=== PATIENT | female | born 1950 | race African-American/Black ===

== ENCOUNTER 2017-07-14 04:28 | Emergency (ER) | payer OTHER, MEDICARE ==
[~2017-07-14] VITALS: Ht 170.2 cm; Wt 73.9 kg
[~2017-07-14 04:28] MED LIST: AMLODIPINE10 MG PO; ASPIR 8181 MG PO; CHLORTHALIDONE50 MG PO; CLONIDINE HCL0.3 MG PO; FLOVENT0.11 MG/Ac INH; LOSARTAN POTAS100 MG PO; METOPROLOL SUC100 MG PO; PROTONIX 40MG T40 MG PO; TRAMADOL50 MG PO; WARFARIN SODIUM10 MG PO
--- NOTE | 2017-07-14 04:32 | ED CARDIAC/CP/PALPITATIONS ---
History of Present Illness General Chief Complaint: Chest Pain Stated Complaint: CHEST PAIN Source: patient Exam Limitations: no limitations Vital Signs & Intake/Output Vital Signs & Intake/Output Vital Signs Date Time Temp Pulse Resp B/P B/P Pulse O2 O2 Flow FiO2 Mean Ox Delivery Rate 07/14 0835 98.0 68 20 120/58 98 Room Air 07/14 0626 97.3 64 20 142/68 100 Room Air 07/14 0445 98 Room Air 07/14 0430 97.0 62 18 100/55 97 Room Air Allergies Coded Allergies: iodine (UNKNOWN 09/30/15) shellfish derived (UNKNOWN 09/30/15) Reconcile Medications Amlodipine Besylate (Amlodipine) 10 MG TABLET 1 TAB PO DAILY BP (Reported) Aspirin (Ecotrin) 81 MG TABLET.DR 1 TAB PO DAILY HEART/BLOOD (Reported) Chlorthalidone 50 MG TAB 1 TAB PO BID BP (Reported) Clonidine Hydrochloride (Clonidine HCl) 0.3 MG TAB 1 TAB PO DAILY BP ( Reported) Fluticasone Propionate (Flovent) 0.11 MG/Actuation CHRISSY 2 PUFF INH PRN DYSPNEA (Reported) Losartan Potassium 100 MG TABLET 1 TAB PO DAILY BP (Reported) Metoprolol Succinate 100 MG TAB.ER.24H 1 TAB PO DAILY HEART (Reported) Pantoprazole Sodium (Protonix) 40 MG TABLET.DR 1 TAB PO DAILY GASTRITIS TRAMADOL HCL (Tramadol) 50 MG TABLET 1 TAB PO Q6P PRN PAIN Warfarin Sodium 10 MG TABLET 1 TAB PO AD BLOOD THINNER (Reported) Triage Nurses Notes Reviewed? yes Onset: Abrupt Duration: hour(s): Timing: single episode today Location: central, left shoulder Radiation: left shoulder Activities at Onset: none Prior Chest Pain/Card Workup: chf Aspirin Today: 325 mg x 1, provided by EMS Associated Symptoms: shortness of breath HPI: 67 yo woman h/o chf, presents with sudden onset left sided shoulder and chest pain x 30 minutes. Was an 8/10 at home, now 6-01/11. She notes that the pain is reproducible, but that it is "deep" pain. "When I get like this, it's my chf." (Nevin GONZALEZ,Aaron Alba) Past History Travel History Traveled to [place] past 21 day No Medical History Any Pertinent Medical History? see below for history Cardiovascular: CHF, hypertension, hyperlipidemia, "HEART PROBLEMS" Musculoskeletal: fracture Endocrine: NONE Blood Disorders: DVT Surgical History Surgical History: non-contributory Psychosocial History Who do you live with Daughter Services at Home None What is your primary language Luxembourgish Family History Hx Contributory? No (Nevin GONZALEZ,Aaron lAba) Review of Systems Review of Systems Constitutional: Reports: no symptoms. EENTM: Reports: no symptoms. Respiratory: Reports: no symptoms. Cardiovascular: Reports: no symptoms. GI: Reports: no symptoms. Genitourinary: Reports: no symptoms. Musculoskeletal: Reports: no symptoms. Skin: Reports: no symptoms. Neurological/Psychological: Reports: no symptoms. Hematologic/Endocrine: Reports: no symptoms. Immunologic/Allergic: Reports: no symptoms. All Other Systems: Reviewed and Negative (Aaron Rooney MD) Physical Exam Physical Exam General Appearance: well developed/nourished, mild distress Head: atraumatic, normal appearance Eyes: Bilateral: normal appearance. Ears, Nose, Throat: normal pharynx, normal ENT inspection Neck: normal inspection, supple, full range of motion Respiratory: normal breath sounds, no respiratory distress, left sided diffuse shoulder tenderness to palpation Cardiovascular: regular rate/rhythm Gastrointestinal: normal bowel sounds, soft, non-tender, no organomegaly Back: normal inspection, normal range of motion Extremities: normal inspection, normal capillary refill, normal range of motion, no edema Neurologic/Psych: no motor/sensory deficits, awake, alert, oriented x 3 Skin: intact, normal color, warm/dry Core Measures ACS in differential dx? Yes CVA/TIA Diagnosis No Sepsis Present: No Sepsis Focused Exam Completed? No (Aaron Rooney MD) Progress Differential Diagnosis: mi vs unstable angina vs other. Plan of Care: Orders Procedure Date/time Status TROPONIN LEVEL 07/14 0820 Active EKG 07/14 0820 Active TROPONIN LEVEL 07/14 431 Complete PARTIAL THROMBOPLASTIN TIME 07/14 431 Complete PROTHROMBIN TIME 07/14 431 Complete D-DIMER 07/14 431 Complete COMPREHENSIVE METABOLIC PANEL 07/14 431 Complete CBC WITHOUT DIFFERENTIAL 07/14 431 Complete B-TYPE NATRIURETIC PEP (BNP) 07/14 431 Complete EKG 07/14 431 Active Laboratory Tests 07/14/17 0830: Troponin I Pending 07/14/17 0520: Anion Gap 11, Estimated GFR > 60, BUN/Creatinine Ratio 21.4, Glucose 114 H, Calcium 9.6, Total Bilirubin 0.6, AST 32, ALT 33, Alkaline Phosphatase 52, Troponin I < 0.01, Aah-G-Fanelflxezz Pept 71.9, Total Protein 6.8, Albumin 3.9, Globulin 2.9, Albumin/Globulin Ratio 1.3, PT 26.2 H, INR 2.52 H, APTT 39 H, D -Dimer High Sensitivty < 200, CBC w Diff NO MAN DIFF REQ, RBC 4.35, MCV 88.1, MCH 28.9, RDW 14.1, MPV 8.3, Gran % 67.5, Lymphocytes % 22.3, Monocytes % 8.3, Eosinophils % 1.6, Basophils % 0.3, Absolute Granulocytes 8.5 H, Absolute Lymphocytes 2.8, Absolute Monocytes 1.1 H, Absolute Eosinophils 0.2, Absolute Basophils 0, PUBS MCHC 32.8 L Diagnostic Imaging: Viewed by Me: Radiology Read. Discussed w/RAD: Radiology Read. Radiology Impression: left shoulder... no fx. CXR Impression: no acute abnormality, no infiltrates, normal size heart, normal mediastinum, PATIENT: HAYDE WAN PRESENT AGE: 67 PATIENT ACCOUNT NO: [id number] : 49 LOCATION: [facility] ORDERING PHYSICIAN: Aaron Rooney MD SERVICE DATE: 07/14/17 EXAM TYPE: RAD - XRY- PORTABLE CHEST XRAY EXAMINATION: XR PORTABLE CHEST CLINICAL INFORMATION: Dyspnea. Chest pain. COMPARISON: 01/15/2017 TECHNIQUE: Portable frontal view of the chest was obtained. FINDINGS: The lungs are well expanded. There is no focal consolidation or effusion. Perihilar and basilar interstitial markings are noted with hazy opacities. No pneumothorax. The cardiomediastinal silhouette is within normal limits. No acute osseous abnormality. IMPRESSION: Interstitial markings in the perihilar and basilar regions with hazy opacities at the bases could represent mild edema versus a small airways process. DICTATED BY: Agustin Gaytan MD DATE/TIME DICTATED:07/14/17507 DOG OBEDIENCE INSTRUCTOR:AILIN DATE/TIME TRANSCRIBED:07/14/17507 CONFIDENTIAL, DO NOT COPY WITHOUT APPROPRIATE AUTHORIZATION. <Electronically signed in Other Vendor System> SIGNED BY: Agustin Gaytan MD 07/14/17 0518 Initial ED EKG: sinus adam, no acute changes Hand-Off Endorsed To: Magdalena Valdes MD Endorsed Time: 0700 Pending: labs, other (EKG#2) (Nevin GONZALEZ,Aaron Alba) Repeat EKG: unchanged (Magdalena Valdes MD) Departure Departure Condition: Stable Clinical Impression Primary Impression: Chest pain Referrals: Santy Dickey APRN (PCP/Family) Departure Forms: Customer Survey General Discharge Information Comments 07/14/17, 6:08AM... pt has resolution of chest pain with toradol.... ekg#1 was non acute, sinus adam.... will check 3 hour trop/ekg. discussed with dr. mancini who concurs with plan... pt signed out to dr. valdes. (Nevin GONZALEZ,Aaron Alba) Departure Disposition: HOME OR SELF CARE Additional Instructions: FOLLOW UP WITH YOUR DOCTOR IN THE OFFICE CONTINUE YOUR COUMADIN AND REGULAR MEDICATIONS RETURN IF WORSE (Magdalena Valdes MD) Critical Care Note Critical Care Note Critical Care Time: non-applicable (Nevin GONZALEZ,Aaron Alba)
--- NOTE | 2017-07-14 05:18 | RADIOLOGY REPORT ---
EXAMINATION: XR PORTABLE CHEST CLINICAL INFORMATION: Dyspnea. Chest pain. COMPARISON: 01/15/2017 TECHNIQUE: Portable frontal view of the chest was obtained. FINDINGS: The lungs are well expanded. There is no focal consolidation or effusion. Perihilar and basilar interstitial markings are noted with hazy opacities. No pneumothorax. The cardiomediastinal silhouette is within normal limits. No acute osseous abnormality. IMPRESSION: Interstitial markings in the perihilar and basilar regions with hazy opacities at the bases could represent mild edema versus a small airways process.
--- NOTE | 2017-07-14 05:19 | RADIOLOGY REPORT ---
EXAMINATION: XR SHOULDER, LEFT CLINICAL INFORMATION: Left shoulder pain. COMPARISON: None TECHNIQUE: AP external rotation, Grashey, scapular Y, and axillary views of the left shoulder. FINDINGS: No fracture or dislocation. The humeral head articulates appropriately with the glenoid. Mild joint space narrowing with marginal osteophytes present. Mild degenerative changes at the acromioclavicular joint. The visualized lung is clear. IMPRESSION: No acute osseous abnormality. Mild degenerative changes at the left shoulder.
[2017-07-14 05:30] LABS: ABSOLUTE BASOPHIL COUNT 0 /CUMM (0.0-0.2); ABSOLUTE EOSINOPHIL COUNT 0.2 /CUMM (0.0-0.7); ABSOLUTE GRANULOCYTE CT 8.5 /CUMM (1.4-6.5); ABSOLUTE LYMPH COUNT 2.8 /CUMM (1.2-3.4); ABSOLUTE MONOCYTE COUNT 1.1 /CUMM (0.10-0.60); BASOPHIL % 0.3 % (0.0-2.0); EOSINOPHIL % 1.6 % (0-5); GRANULOCYTE % 67.5 % (42.2-75.2); HEMATOCRIT 38.3 % (37-47); MEAN CORPUSCULAR HGB 28.9 PG (27.0-31.0); MEAN CORPUSCULAR HGB CONC 32.8 G/DL (33.0-37.0); MEAN CORPUSCULAR VOLUME 88.1 FL (81.0-99.0); MEAN PLATELET VOLUME 8.3 FL (7.4-10.4); PLATELET COUNT 240 /CUMM (130-400); RBC DISTRIBUTION WIDTH 14.1 % (11.5-14.5); RED BLOOD CELL CT 4.35 /CUMM (4.20-5.40); WHITE BLOOD CELL COUNT 12.6 /CUMM (4.8-10.8)
[2017-07-14 05:50] LABS: PT 26.2 SEC (9.4-12.5); PTT 39 SEC (25-37)
[2017-07-14 08:35] VITALS: BP 120/58
== END 2017-07-14 09:44 ==
LOC: ERH 04:28
PROVIDERS: Pediatrics
DX: R07.9 Chest pain, unspecified (principal)
CPT/HCPCS: 71045; 73030-LT; 93005; 93010; 96374; J1885

== ENCOUNTER 2017-08-03 10:45 | Observation (INO) | payer OTHER, MEDICARE ==
[~2017-08-03] VITALS: Ht 170.2 cm; Wt 73.9 kg
[~2017-08-03 10:45] MED LIST changes: +COUMADIN1 M1 PO; -WARFARIN SODIUM10 MG PO
--- NOTE | 2017-08-03 11:39 | ED CARDIAC/CP/PALPITATIONS ---
See Addendum History of Present Illness General Chief Complaint: Chest Pain Stated Complaint: CP Source: patient Exam Limitations: no limitations Allergies Coded Allergies: iodine (UNKNOWN 09/30/15) shellfish derived (UNKNOWN 09/30/15) Triage Note: 67 YO FEMALE TO TRIAGE C/O L SIDED CHEST PAIN X2 HOURS. STATES SHE WAS JUST AT THE COUMADIN CLINIC AND WAS TOLD HER BP WAS HIGH AND TO COME HERE. BP 198/89 AT THIS TIME. PT C/O SLIGHT SOB, DENIES RADIATION OF PAIN. DENIES N/V. EKG COMPLETED ON ARRIVAL AND SHOWN TO MD. Triage Nurses Notes Reviewed? yes HPI: Ms. Bush is a 67 yo f with a PMH significant for DVT on Coumadin and HTN who presents to the ED with intermittent sharp CP that started this a.m. Initially 7 /10 but now 5/10 in severity without radiation. Patient reports she was at the Cancer clinic to have her routine mammogram and INR check. On her way to her car she felt palpitations at which time her CP came back. She also reports CP with deep inspiration. She reports nausea while in the ED. She reported she was scheduled to have a Dipyridamole stress test today with Dr. Sprague. She denies vomiting, nasal congestion, rhinorrhea, urinary or bowel symptoms. (Johnny GONZALEZ,[facility]) Reconcile Medications Albuterol Sulfate (Ventolin Hfa) 90 MCG HFA.AER.AD 2 PUF INH DAILY NEEDED SOB (Reported) Amlodipine Besylate (Amlodipine) 10 MG TABLET 1 TAB PO DAILY BP (Reported) Aspirin (Ecotrin) 81 MG TABLET.DR 1 TAB PO DAILY HEART/BLOOD (Reported) Clonidine Hydrochloride (Clonidine HCl) 0.3 MG TAB 1 TAB PO DAILY BP ( Reported) Esomeprazole (Nexium) 40 MG CAPSULE.DR 1 TAB PO DAILY GERD (Reported) Fluticasone Propionate (Flovent) 0.11 MG/Actuation CHRISSY 2 PUFF INH PRN DYSPNEA (Reported) Hydralazine HCl 10 MG TABLET 1 TAB PO TID HTN Losartan Potassium 100 MG TABLET 1 TAB PO DAILY BP (Reported) Metoprolol Succinate 100 MG TAB.ER.24H 1 TAB PO DAILY HEART (Reported) Warfarin Sodium (Coumadin) 1 MG TABLET 1 TAB PO DAILY blood thinner ( Reported) take 15 mg coumadin on WEDNESDAY, WEDNESDAY AND WEDNESDAY AND 10 MG COUMADIN ON REST OF THE DAYS . (Ian GONZALEZ,Billy) Vital Signs & Intake/Output Vital Signs & Intake/Output Vital Signs Date Time Temp Pulse Resp B/P B/P Pulse O2 O2 Flow FiO2 Mean Ox Delivery Rate 08/05 1711 65 140/80 02/ 1410 98.5 64 20 140/70 97 Room Air 08/05 0927 54 156/82 / 0927 54 156/82 08/05 0927 98.7 54 156/82 08/05 0927 156/82 02 0638 98.7 54 20 142/88 96 Room Air 08/05 0414 50 178/86 08/05 0103 98.2 57 18 186/88 99 Room Air 08/05 0004 64 16 131/66 95 Room Air 08/04 2308 56 170/78 08/04 2053 98.5 56 20 170/78 96 Room Air ED Intake and Output 08/05 0000 08/04 1200 Intake Total 1080 Output Total Balance 1080 Intake, Oral 1080 (Sudha GONZALEZ,Oseas Rose) Past History Travel History Traveled to [place] past 21 day No Medical History Any Pertinent Medical History? see below for history Cardiovascular: CHF, hypertension, hyperlipidemia, "HEART PROBLEMS" Musculoskeletal: fracture Endocrine: NONE Blood Disorders: DVT Surgical History Surgical History: non-contributory Psychosocial History Who do you live with Daughter Services at Home None What is your primary language Vietnamese Tobacco Use: Never used Family History Hx Contributory? No (Layla Turner MD) Review of Systems Review of Systems Constitutional: Reports: see HPI. (Layla Turner MD) Physical Exam Physical Exam General Appearance: well developed/nourished, no apparent distress, alert, awake , comfortable Head: atraumatic, normal appearance Eyes: Bilateral: normal appearance, PERRL, EOMI. Ears, Nose, Throat: normal pharynx, normal ENT inspection Neck: normal inspection, supple, full range of motion Respiratory: decreased breath sounds Cardiovascular: regular rate/rhythm Gastrointestinal: normal bowel sounds, soft, non-tender Extremities: LLE trace edema Core Measures ACS in differential dx? No CVA/TIA Diagnosis No Sepsis Focused Exam Completed? No (Layla Turner MD) Core Measures Sepsis Present: No (Sudha GONZALEZ,Oseas Rose) Progress Differential Diagnosis: CHF/pulm edema, costochondritis, pericarditis, pulmonary embolism CXR Impression: no acute abnormality Initial ED EKG: normal sinus rhythm (Johnny GONZALEZ,Layla) Hand-Off Endorsed To: Oseas Haley MD Endorsed Time: 1521 Pending: CT, labs (Ian GONZALEZ,Billy) Plan of Care: Orders Procedure Date/time Status PROTHROMBIN TIME 08/06 0600 Active Heart Healthy Diet 08/05 L Active PROTHROMBIN TIME 08/05 0600 Complete Discharge Patient 08/05 UNK Active Lab Add-on Test 08/05 UNK Active DIPYRIDAMOLE STRESS W/NUC IMAG 08/05 UNK Complete Telemetry/Asset Manager 08/04 212 Active DIRECT BILIRUBIN 08/04 0940 Complete Current Medications Sig/Evangelina Start time Last Medication Dose Stop Time Status Admin Amlodipine Besylate 10 MG DAILY 08/05 1000 AC 08/05 (Norvasc) 0927 Clonidine 0.3 MG DAILY 08/05 1000 AC 08/05 (Catapres) 0927 Losartan Potassium 100 MG DAILY 08/05 1000 AC 08/05 (Cozaar) 0927 Hydralazine HCl 10 MG TID 08/04 1600 AC 08/05 (Apresoline) 1711 Aspirin Buffered 81 MG DAILY 08/04 1000 AC 08/05 (Ecotrin) 0926 Budesonide/ 2 PUF BID 08/04 1000 AC 08/05 Formoterol Fumarate 0927 (SYMBICORT) Acetaminophen 650 MG Q6P PRN 08/04 0915 AC (Tylenol) Albuterol Sulfate 2 PUF DAILY NEEDED 08/04 0915 AC (Ventolin) Oxycodone/ 1 TAB Q6P PRN 08/04 0915 AC Acetaminophen (Percocet) Omeprazole 40 MG DAILY AC 08/04 0913 AC 08/05 (Prilosec) 0628 Laboratory Tests 08/05/17 0625: PT 24.2 H, INR 2.32 H Diagnostic Imaging: Discussed w/RAD: Radiology Read, CT Scan, Ultrasound. Radiology Impression: PATIENT: HAYDE BUSH PRESENT AGE: 67 PATIENT ACCOUNT NO: [id number] : 49 LOCATION: [facility] ORDERING PHYSICIAN: Layla Turner MD SERVICE DATE: 08/03/17- EXAM TYPE: US - US-UNILATERAL VENOUS DOPPLER EXAMINATION: DOPPLER VENOUS ULTRASOUND EXTREMITY, RIGHT CLINICAL INFORMATION: Right lower extremity swelling and edema. COMPARISON: None. TECHNIQUE: Grayscale, Doppler and spectral analysis of the lower extremity was performed. FINDINGS: There is no evidence for a deep venous thrombosis within the visualized lower extremity veins. There is normal flow, compression and augmentation. ADDITIONAL FINDINGS: No Rivera's cyst is identified. IMPRESSION: Unremarkable examination. Specifically, no evidence for DVT. DICTATED BY: Elijah Archer MD DATE/TIME DICTATED:08/03/171854 MANUFACTURING TEAM LEADER:AILIN DATE/TIME TRANSCRIBED:08/03/171854 CONFIDENTIAL, DO NOT COPY WITHOUT APPROPRIATE AUTHORIZATION. <Electronically signed in Other Vendor System> SIGNED BY: Elijah Archer MD 08/03/17 1900, PATIENT: HAYDE BUSH PRESENT AGE: 67 PATIENT ACCOUNT NO: [id number] : 49 LOCATION: [facility] ORDERING PHYSICIAN: Layla Turner MD SERVICE DATE: 08/03/17 EXAM TYPE: CAT - CTA CHEST-PULMONARY EMBOLISM EXAMINATION: CT ANGIOGRAM CHEST WITH AND WITHOUT CONTRAST (CT PULMONARY ANGIOGRAM FOR PE) CLINICAL INFORMATION: Shortness of breath, chest pain. COMPARISON: Chest x-ray performed same day. CT chest angiogram June 2014. TECHNIQUE: Prior to contrast administration, noncontrast localization images were obtained. Subsequently, multidetector volumetric imaging was performed from the thoracic inlet to below the diaphragms following the administration of 200 mL Optiray 320 intravenous contrast. No contrast reaction reported. Sagittal, coronal, and MIP oblique sagittal reformatted images were obtained on the CT workstation, uploaded to PACS, and reviewed. Total exam dose-length product 1774 mGy-cm. FINDINGS: QUALITY OF STUDY/CONTRAST BOLUS: Satisfactory PULMONARY ARTERIES: No central or segmental pulmonary emboli. THORACIC AORTA: No aneurysm or dissection. LUNG: Scattered blebs bilaterally. Minimal opacity in the posterior aspect of the lungs likely dependent atelectasis. PLEURA: No pleural effusion or pneumothorax. MEDIASTINUM: Normal heart size. No pericardial effusion. No hilar or mediastinal lymphadenopathy. No evidence of septal bowing or right heart strain. CHEST WALL/AXILLA: No axillary or internal mammary lymphadenopathy. OSSEOUS STRUCTURES: Mild spondylosis of the dorsal spine, unchanged. UPPER ABDOMEN: Status post cholecystectomy. No reflux of contrast into the hepatic veins to suggest elevated right heart pressures. IMPRESSION: 1. No evidence for pulmonary embolism. 2. Mild emphysema with scattered bilateral blebs. No change. 3. Mild posterior dependent atelectasis bilaterally. DICTATED BY: Elijah Venegas MD DATE/TIME DICTATED:08/03/172122 MANUFACTURING TEAM LEADER: AILIN DATE/TIME TRANSCRIBED:08/03/172122 CONFIDENTIAL, DO NOT COPY WITHOUT APPROPRIATE AUTHORIZATION. <Electronically signed in Other Vendor System> SIGNED BY: Elijah Venegas MD 08/03/170 Comments: 08/03/2017 6:58:09 PM patient signed out to me by resident at shift jacquard loom card changer. Awaiting ultrasound and CAT scan as part of an evaluation for chest pain. 08/03/17 23:50 Pt signed out to dr black. although bp improved, pt's daughter concerned that the medications will wear off and pts bp and chest pain will return. (Sudha GONZALEZ,Oseas Rose) Hand-Off Endorsed To: Oseas Bush DO Endorsed Time: 0700 Pending: other (follow up bp) (Nevin GONZALEZ,Aaron Alba) Departure Departure Disposition: HOME OR SELF CARE Condition: Stable Referrals: Santy Dickey APRN (PCP/Family) Departure Forms: Customer Survey General Discharge Information Comments Dr. Sprague was advised of patient's ER visit (Johnny GONZALEZ,Domonique) Departure Prescriptions: Current Visit Scripts Hydralazine HCl 1 TAB PO TID #30 TAB PA/GEAR ROOM KEEPER Co-Sign Statement Statement: ED Attending supervision documentation- x I saw and evaluated the patient. I have also reviewed all the pertinent lab results and diagnostic results. I agree with the findings and the plan of care as documented in the PA's/GEAR ROOM KEEPER's documentation. Hx DVT on coumadin awoke w recurrent SSCP. No ASCAD on cath or stress testing in past. D-dimer elevated. [] I have reviewed the ED Record and agree with the PA's/GEAR ROOM KEEPER's documentation. [] Additions or exceptions (if any) to the PAs/GEAR ROOM KEEPER's note and plan are summarized below: [] (Ian GONZALEZ,Billy) Departure Clinical Impression Primary Impression: Uncontrolled hypertension (Sudha GONZALEZ,Oseas Rose) Departure Comments \\ 08/03/17 9:21 AM She was signed out to me by Dr. Black at 7 AM. She was placed in ED observation for refractory chest pain and severe hypertension. Her systolic blood pressure exceeded 210. Currently she is still complaining of mild chest pain. She is therefore being placed into inpatient observation for further management of her blood pressure control, control of her chest pain, consider echocardiogram. (Oseas Bush DO) Critical Care Note Critical Care Note Critical Care Time: 30-74 min (Sudha GONZALEZ,Oseas Rose) ED Attending Observation Initial Observation Note: I have seen and personally examined HAYDE BUSH on 08/04/17 at 0004. I agree with the current emergency department documentation. The disposition (admission or discharge) is uncertain at this time, she needs a period of observation for the following reason(s): Pt with elevated blood pressure, requiring several medications. Will monitor blood pressure overnight. anticipating discharge in AM if bp stabilized. The ED Nurse caring for this patient has been personally informed as to what the patient is being observed for. Observation Re-Evaluation: I have reevaluated HAYDE BUSH on 08/04/17 at 0427. The physical findings that support the continued need to observe this patient include: discussed at great length with patient and daughter who were concerned about medication administration and use of hydralazine. Will give clonidine 0.3mg as previously ordered. Will follow BP. (Nevin GONZALEZ,Aaron Alba) Santy Dickey APRN (PCP/Family) Departure Forms: Customer Survey General Discharge Information Comments Dr. Sprague was advised of patient's ER visit (Johnny GONZALEZ,Layla) PA/GEAR ROOM KEEPER Co-Sign Statement Statement: ED Attending supervision documentation- x I saw and evaluated the patient. I have also reviewed all the pertinent lab results and diagnostic results. I agree with the findings and the plan of care as documented in the PA's/GEAR ROOM KEEPER's documentation. Hx DVT on coumadin awoke w recurrent SSCP. No ASCAD on cath or stress testing in past. D-dimer elevated. [] I have reviewed the ED Record and agree with the PA's/GEAR ROOM KEEPER's documentation. [] Additions or exceptions (if any) to the PAs/GEAR ROOM KEEPER's note and plan are summarized below: [] (Ian GONZALEZ,Billy) Departure Clinical Impression Primary Impression: Uncontrolled hypertension (Sudha GONZALEZ,Oseas Rose) Departure Comments \\ 08/03/17 9:21 AM She was signed out to me by Dr. Black at 7 AM. She was placed in ED observation for refractory chest pain and severe hypertension. Her systolic blood pressure exceeded 210. Currently she is still complaining of mild chest pain. She is therefore being placed into inpatient observation for further management of her blood pressure control, control of her chest pain, consider echocardiogram. (Oseas Bush DO) Critical Care Note Critical Care Note Critical Care Time: 30-74 min (Sudha GONZALEZ,Oseas Rose) ED Attending Observation Initial Observation Note: I have seen and personally examined HAYDE BUSH on 08/04/17 at 0004. I agree with the current emergency department documentation. The disposition (admission or discharge) is uncertain at this time, she needs a period of observation for the following reason(s): Pt with elevated blood pressure, requiring several medications. Will monitor blood pressure overnight. anticipating discharge in AM if bp stabilized. The ED Nurse caring for this patient has been personally informed as to what the patient is being observed for. Observation Re-Evaluation: I have reevaluated HAYDE BUSH on 08/04/17 at 0427. The physical findings that support the continued need to observe this patient include: discussed at great length with patient and daughter who were concerned about medication administration and use of hydralazine. Will give clonidine 0.3mg as previously ordered. Will follow BP. (Nevin GONZALEZ,Aaron Alba)
[2017-08-03 12:56] LABS: ABSOLUTE BASOPHIL COUNT 0.1 /CUMM (0.0-0.2); ABSOLUTE EOSINOPHIL COUNT 0.1 /CUMM (0.0-0.7); ABSOLUTE GRANULOCYTE CT 5.1 /CUMM (1.4-6.5); ABSOLUTE LYMPH COUNT 3.1 /CUMM (1.2-3.4); ABSOLUTE MONOCYTE COUNT 0.6 /CUMM (0.10-0.60); BASOPHIL % 0.7 % (0.0-2.0); EOSINOPHIL % 1.2 % (0-5); GRANULOCYTE % 57.4 % (42.2-75.2); MEAN CORPUSCULAR HGB 29.5 PG (27.0-31.0); MEAN CORPUSCULAR HGB CONC 33.4 G/DL (33.0-37.0); MEAN CORPUSCULAR VOLUME 88.2 FL (81.0-99.0); MEAN PLATELET VOLUME 8.3 FL (7.4-10.4); PLATELET COUNT 262 /CUMM (130-400); RBC DISTRIBUTION WIDTH 14.2 % (11.5-14.5); RED BLOOD CELL CT 4.54 /CUMM (4.20-5.40); WHITE BLOOD CELL COUNT 8.9 /CUMM (4.8-10.8)
--- NOTE | 2017-08-03 13:10 | RADIOLOGY REPORT ---
EXAMINATION: XR PORTABLE CHEST CLINICAL INFORMATION: Pleuritic chest pain. Shortness of breath. COMPARISON: Multiple previous chest x-rays with most recent chest x-ray dated 07/14/2017. Chest CT of 06/23/2014. TECHNIQUE: Portable frontal view of the chest was obtained. FINDINGS: The cardiomediastinal silhouette is stable with normal cardiac size. Mildly ectatic aorta. No abnormal tracheal deviation. The lungs are mildly hypoexpanded. Minimal bibasilar subsegmental atelectasis. No focal airspace opacity noted. No evidence of significant pleural effusions, pulmonary edema or pneumothorax. The regional skeleton is intact. IMPRESSION: No acute pulmonary process. Previously noted interstitial markings in the perihilar and basilar regions are not as discretely seen on the current examination.
[2017-08-03 13:18] LABS: PT 14.9 SEC (9.4-12.5); PTT 31 SEC (25-37)
[2017-08-03] MEDS ORDERED: VENTOLIN HFA18 GM INH (14:51)
[2017-08-03] MEDS ORDERED: NEXIUM40 M1 PO (14:52)
--- NOTE | 2017-08-03 18:13 | Cons- Cardiology ---
General Information and HPI Consulting Request Date of Consult: 08/03/17 Requested By: Dr. Turner Reason for Consult: chest pain History of Present Illness: the patient is a pleasant 67-year-old female who is well known to me, with history of hypertension, recurrent DVT, and premature ventricular contractions she does not have a history of CA D, and her left ventricular function is known to be normal. She presents with complaint of left-sided heaviness which is a 5/ 10, intermittently over the past day. The discomfort lasts for hours at a time. No associated shortness of breath. No palpitations. No diaphoresis. No nausea or vomiting. No lightheadedness or dizziness. Allergies/Medications Allergies: Coded Allergies: iodine (UNKNOWN 09/30/15) shellfish derived (UNKNOWN 09/30/15) Home Med List: Albuterol Sulfate (Ventolin Hfa) 90 MCG HFA.AER.AD 2 PUF INH DAILY NEEDED SOB (Reported) Amlodipine Besylate (Amlodipine) 10 MG TABLET 1 TAB PO DAILY BP (Reported) Aspirin (Ecotrin) 81 MG TABLET.DR 1 TAB PO DAILY HEART/BLOOD (Reported) Clonidine Hydrochloride (Clonidine HCl) 0.3 MG TAB 1 TAB PO DAILY BP ( Reported) Esomeprazole (Nexium) 40 MG CAPSULE.DR 1 TAB PO DAILY GERD (Reported) Fluticasone Propionate (Flovent) 0.11 MG/Actuation CHRISYS 2 PUFF INH PRN DYSPNEA (Reported) Losartan Potassium 100 MG TABLET 1 TAB PO DAILY BP (Reported) Metoprolol Succinate 100 MG TAB.ER.24H 1 TAB PO DAILY HEART (Reported) Warfarin Sodium 10 MG TABLET 1 TAB PO AD BLOOD THINNER (Reported) Current Medications: Current Medications Sig/Evangelian Start time Last Medication Dose Route Stop Time Status Admin Diphenhydramine HCl 50 MG ONCE ONE 08/03 1830 AC IV 08/03 1831 Ketorolac 0 .STK-MED ONE 08/03 1233 DC Tromethamine .ROUTE Ketorolac 30 MG ONCE ONE 08/03 1215 DC 08/03 Tromethamine IV 08/03 1216 1256 Methylprednisolone 0 .STK-MED ONE 08/03 1503 DC .ROUTE Methylprednisolone 125 MG ONCE ONE 08/03 1430 DC 08/03 IV 08/03 1431 1632 Review of Systems Review of Systems: No rash. No tremor. No hemoptysis. No hematemesis. All other systems are reviewed and noted to be negative. Past History Travel History Traveled to [place] past 21 day No Medical History Cardiovascular: CHF, hypertension, hyperlipidemia, "HEART PROBLEMS" Musculoskeletal: fracture Endocrine: NONE Blood Disorders: DVT Surgical History Surgical History: non-contributory Family History Relations & Conditions If Any: MOTHER Heart disease Psychosocial History Services at Home: None Exam & Diagnostic Data Vital Signs and I&O Vital Signs Date Time Temp Pulse Resp B/P B/P Pulse O2 O2 Flow FiO2 Mean Ox Delivery Rate 08/03 1524 98.0 69 18 144/79 98 Room Air 08/03 1353 96.6 60 18 145/88 98 08/03 1207 99 Room Air 08/03 1056 98.6 59 18 198/89 98 Room Air Intake & Output 08/03 1600 08/03 0800 08/03 0000 08/02 1600 08/02 0800 08/02 0000 Intake Total Output Total Balance Patient 163 lb Weight Weight Reported by Patient Measurement Method Physical Exam: Gen: The patient is in no acute distress HEENT: Normal nose, ears, and oropharynx. Pupils equal bilaterally. Conjunctiva normal. Neck: Supple with no JVD, no masses, and no thyromegaly Lungs: Clear to auscultation with normal respiratory effort Heart: RRR, S1, S2, no murmurs. No peripheral edema, 2+ pulses in the lower extremities bilaterally Abdomen: Soft, nontender, no masses. No hepatomegaly. No splenomegaly Extremities: No clubbing or cyanosis. Normal muscle strength in the upper and lower extremities. Skin: Normal skin turgor with no skin ulcers or lesions noted. Neuro: Cranial nerves intact. Sensation intact Psych: Alert and oriented 3 with appropriate affect Labs/Gurmeet Results: Laboratory Tests 08/03 1245 Chemistry Sodium (137 - 145 mmol/L) 144 Potassium (3.5 - 5.1 mmol/L) 4.3 Chloride (98 - 107 mmol/L) 109 H Carbon Dioxide (22 - 30 mmol/L) 22 Anion Gap (5 - 16) 12 BUN (7 - 17 mg/dL) 13 Creatinine (0.5 - 1.0 mg/dL) 0.7 Estimated GFR (>60 ml/min) > 60 BUN/Creatinine Ratio (7 - 25 %) 18.6 Troponin I (< 0.11 ng/ml) < 0.01 Coagulation PT (9.4 - 12.5 SEC) 14.9 H INR (0.90 - 1.19) 1.42 H APTT (25 - 37 SEC) 31 D-Dimer High Sensitivty (0 - 243 ng/ml) 431 H Hematology CBC w Diff NO MAN DIFF REQ WBC (4.8 - 10.8 /CUMM) 8.9 RBC (4.20 - 5.40 /CUMM) 4.54 Hgb (12.0 - 16.0 G/DL) 13.4 Hct (37 - 47 %) 40.0 MCV (81.0 - 99.0 FL) 88.2 MCH (27.0 - 31.0 PG) 29.5 MCHC (33.0 - 37.0 G/DL) 33.4 RDW (11.5 - 14.5 %) 14.2 Plt Count (130 - 400 /CUMM) 262 MPV (7.4 - 10.4 FL) 8.3 Gran % (42.2 - 75.2 %) 57.4 Lymphocytes % (20.5 - 51.1 %) 34.5 Monocytes % (1.7 - 9.3 %) 6.2 Eosinophils % (0 - 5 %) 1.2 Basophils % (0.0 - 2.0 %) 0.7 Absolute Granulocytes (1.4 - 6.5 /CUMM) 5.1 Absolute Lymphocytes (1.2 - 3.4 /CUMM) 3.1 Absolute Monocytes (0.10 - 0.60 /CUMM) 0.6 Absolute Eosinophils (0.0 - 0.7 /CUMM) 0.1 Absolute Basophils (0.0 - 0.2 /CUMM) 0.1 Diagnostic Data EKG Results EKG tracings dependent reviewed, and reveals normal sinus rhythm with no ischemic changes CXR Results No acute pulmonary process. Previously noted interstitial markings in the perihilar and basilar regions are not as discretely seen on the current examination. Assessment/Plan Assessment/Plan 67-year-old female with history of recurrent DVT presenting with chest pain. Initial troponin is negative. EKG does not reveal any acute ischemic changes. The patient was recently seen in the office and nuclear stress test was ordered because of recent complaint of chest pain. she is anticoagulated warfarin for her history of recurrent DVT, and INR subtherapeutic. Recommendations: * I agree with CT angiogram to rule out pulmonary embolism * check 2nd troponin * If clinically improved, and 2nd troponin is negative, and CT angiogram is negative the patient may be discharged for outpatient follow-up. * She should reschedule her outpatient stress test which had been scheduled for today. * Continue warfarin for INR to I recommended that she change from warfarin to Eliquis as I have in the past, however the patient declines to change to a NOAC, and wishes to continue warfarin with INR checks Consult Acknowledgment - Thank you for your consult request.
--- NOTE | 2017-08-03 19:00 | ULTRASOUND REPORT ---
EXAMINATION: DOPPLER VENOUS ULTRASOUND EXTREMITY, RIGHT CLINICAL INFORMATION: Right lower extremity swelling and edema. COMPARISON: None. TECHNIQUE: Grayscale, Doppler and spectral analysis of the lower extremity was performed. FINDINGS: There is no evidence for a deep venous thrombosis within the visualized lower extremity veins. There is normal flow, compression and augmentation. ADDITIONAL FINDINGS: No Rivera's cyst is identified. IMPRESSION: Unremarkable examination. Specifically, no evidence for DVT.
--- NOTE | 2017-08-03 21:40 | CT SCAN REPORT ---
EXAMINATION: CT ANGIOGRAM CHEST WITH AND WITHOUT CONTRAST (CT PULMONARY ANGIOGRAM FOR PE) CLINICAL INFORMATION: Shortness of breath, chest pain. COMPARISON: Chest x-ray performed same day. CT chest angiogram June 2014. TECHNIQUE: Prior to contrast administration, noncontrast localization images were obtained. Subsequently, multidetector volumetric imaging was performed from the thoracic inlet to below the diaphragms following the administration of 200 mL Optiray 320 intravenous contrast. No contrast reaction reported. Sagittal, coronal, and MIP oblique sagittal reformatted images were obtained on the CT workstation, uploaded to PACS, and reviewed. Total exam dose-length product 1774 mGy-cm. FINDINGS: QUALITY OF STUDY/CONTRAST BOLUS: Satisfactory PULMONARY ARTERIES: No central or segmental pulmonary emboli. THORACIC AORTA: No aneurysm or dissection. LUNG: Scattered blebs bilaterally. Minimal opacity in the posterior aspect of the lungs likely dependent atelectasis. PLEURA: No pleural effusion or pneumothorax. MEDIASTINUM: Normal heart size. No pericardial effusion. No hilar or mediastinal lymphadenopathy. No evidence of septal bowing or right heart strain. CHEST WALL/AXILLA: No axillary or internal mammary lymphadenopathy. OSSEOUS STRUCTURES: Mild spondylosis of the dorsal spine, unchanged. UPPER ABDOMEN: Status post cholecystectomy. No reflux of contrast into the hepatic veins to suggest elevated right heart pressures. IMPRESSION: 1. No evidence for pulmonary embolism. 2. Mild emphysema with scattered bilateral blebs. No change. 3. Mild posterior dependent atelectasis bilaterally.
--- NOTE | 2017-08-04 09:22 | History & Physical ---
Kendrick Carranza 08/04/17 0915: General Information and HPI MD Statement: I have seen and personally examined HAYDE WAN and documented this H&P. The patient is a 67 year old F who presented with a patient stated chief complaint of high blood pressure. Source of Information: patient, family Exam Limitations: no limitations History of Present Illness: Ms. Wan is a 61-year-old woman with past medical history significant for recurrent DVT, uncontrolled hypertension who presented to the ED yesterday from Coumadin clinic after being found to have systolic blood pressure as well as 215 , as stated by the patient. Note the hospital, patient was also experiencing chest heaviness, nonradiating, nonexertional and not positional, 5/10 in intensity. Additionally, she also complained of nausea and reported intense sweating. The patient came to the ED around 11:15 AM and was ruled out for PE with a CTA, ruled out for ACS with negative troponins and serial EKGs. Patient did have persistent high blood pressure and received multiple blood pressure lowering medications over the course of 24 hours. Currently, her blood pressure is at goal, less than 160/100. Currently, patient is chest pain-free, offers no headaches, vision changes, lightheadedness or dizziness. No shortness of breath, palpitations or worsening leg swelling. Active smoker, a pack lasts her 3-4 days. Rare alcohol use, no recreational or prescription opiates. No cocaine use reported. Patient was recently seen in the ED for hypertensive urgency 2 weeks ago. Patient states compliance with all her 4 blood pressure medications and also with Coumadin. She endorses to minimal salt intake. Unsure if she has haven't gotten extensive workup done for secondary causes of hypertension. Patient regularly follows Dr. Sprague, and was scheduled to get a stress test on 08/03/2018, she missed owing to aforementioned. Other systems reviewed and negative, exceptions above. Allergies/Medications Allergies: Coded Allergies: iodine (UNKNOWN 09/30/15) shellfish derived (UNKNOWN 09/30/15) Home Med list Albuterol Sulfate (Ventolin Hfa) 90 MCG HFA.AER.AD 2 PUF INH DAILY NEEDED SOB (Reported) Amlodipine Besylate (Amlodipine) 10 MG TABLET 1 TAB PO DAILY BP (Reported) Aspirin (Ecotrin) 81 MG TABLET.DR 1 TAB PO DAILY HEART/BLOOD (Reported) Clonidine Hydrochloride (Clonidine HCl) 0.3 MG TAB 1 TAB PO DAILY BP ( Reported) Esomeprazole (Nexium) 40 MG CAPSULE.DR 1 TAB PO DAILY GERD (Reported) Fluticasone Propionate (Flovent) 0.11 MG/Actuation CHRISSY 2 PUFF INH PRN DYSPNEA (Reported) Losartan Potassium 100 MG TABLET 1 TAB PO DAILY BP (Reported) Metoprolol Succinate 100 MG TAB.ER.24H 1 TAB PO DAILY HEART (Reported) Warfarin Sodium 10 MG TABLET 1 TAB PO AD BLOOD THINNER (Reported) Past History Travel History Traveled to [place] past 21 day No Medical History Neurological: NONE EENT: NONE Cardiovascular: CHF, hypertension, hyperlipidemia, "HEART PROBLEMS" Respiratory: NONE Gastrointestinal: NONE Hepatic: NONE Renal: NONE Musculoskeletal: fracture Psychiatric: NONE Endocrine: NONE Blood Disorders: DVT Surgical History Surgical History: non-contributory Past Family/Social History Family History Relations & Conditions if any MOTHER Heart disease Psychosocial History Services at Home: None Smoking Status: Never Smoked Review of Systems Review of Systems Constitutional: Reports: see HPI. Exam & Diagnostic Data Last 24 Hrs of Vital Signs/I&O Vital Signs Date Time Temp Pulse Resp B/P B/P Pulse O2 O2 Flow FiO2 Mean Ox Delivery Rate 08/04 0800 98.3 63 8 150/74 99 Room Air 08/04 0648 98.6 70 18 162/68 98 Room Air 08/04 0517 72 18 168/72 98 Room Air 08/04 0433 98.0 67 18 202/88 08/04 0407 67 18 202/88 98 Room Air 08/04 0257 70 18 163/87 98 Room Air 08/04 0155 68 18 153/72 98 Room Air 08/04 0052 57 16 171/77 08/04 0050 57 16 171/77 97 Room Air 08/03 2305 64 16 168/76 97 Room Air 08/03 2210 64 16 180/82 97 Room Air 08/03 2152 54 190/98 08/03 2056 210/100 08/03 1843 74 16 200/90 08/03 1841 74 200/90 08/03 1841 74 200/90 08/03 1841 74 200/90 08/03 1524 98.0 69 18 144/79 98 Room Air 08/03 1353 96.6 60 18 145/88 98 08/03 1207 99 Room Air 08/03 1056 98.6 59 18 198/89 98 Room Air Physical Exam General Appearance Alert, Oriented X3, Cooperative HEENT Atraumatic, PERRLA, EOMI Neck Supple, No JVD Cardiovascular Regular Rate, Normal S1, Normal S2 Lungs Clear to Auscultation, Normal Air Movement Abdomen Normal Bowel Sounds, Soft, No Tenderness Neurological Normal Gait, Normal Speech, Strength at 5/5 X4 Ext Extremities No Clubbing, No Cyanosis, No Edema Last 24 Hrs of Labs/Gurmeet: Laboratory Tests 08/03/17 1856: Troponin I < 0.01 08/03/17 1245: Anion Gap 12, Estimated GFR > 60, BUN/Creatinine Ratio 18.6, Troponin I < 0.01, PT 14.9 H, INR 1.42 H, APTT 31, D-Dimer High Sensitivty 431 H, CBC w Diff NO MAN DIFF REQ, RBC 4.54, MCV 88.2, MCH 29.5, MCHC 33.4, RDW 14.2, MPV 8.3, Gran % 57.4, Lymphocytes % 34.5, Monocytes % 6.2, Eosinophils % 1.2, Basophils % 0.7, Absolute Granulocytes 5.1, Absolute Lymphocytes 3.1, Absolute Monocytes 0.6, Absolute Eosinophils 0.1, Absolute Basophils 0.1 Microbiology 08/03 1252 NASOPHARYN: Influenza Virus A & B Rapid Smear - COMP Diagnostic Data EKG Results EKG tracings dependent reviewed, and reveals normal sinus rhythm with no ischemic changes CXR Results No acute pulmonary process. Previously noted interstitial markings in the perihilar and basilar regions are not as discretely seen on the current examination. Assessment/Plan Assessment: Mrs. Wan is a 67-year-old woman with history of recurrent DVT on Coumadin, uncontrolled hypertension while on 4 medications, with episodes of chest heaviness in the past multiple times with negative subsequent workups. Of concern is patient's uncontrolled hypertension, in the setting of patient stated compliance to medication and diet. Patient to be admitted to telemetry floor for management of hypertensive urgency and chest pain. 1. Hypertensive urgency: No evidence of end organ damage. Recheck CBC, CMP today. Continue beta india, calcium channel india, and ARB at current doses. Consider adding a diuretic for better management of her hypertensive symptoms. No stated nonadherence with either their chronic antihypertensive drug regimen or their low-sodium diet. Obtain records from [facility] to find out more about previous workups for secondary causes of hypertension. Goal blood pressure less than 160/100. Avoid overaggressive drops in blood pressure. 2. Chest pain syndrome: PE ruled out, ACS ruled out. Patient currently chest pain-free. Stress test recommendations per cardiology, patient requests getting stress test while inpatient. Patient was scheduled to get a stress test on , missed appointment secondary to her current visit to ED. Check EKG today. Continue Nexium. 3. History of DVT: Subtherapeutic INR noted yesterday. Warfarin dose yesterday , her dose for today based on INR results. Check INR for today. Full code. Heart healthy diet. DVT prophylaxis addressed by use of Coumadin. As Ranked By This Provider Problem List: 1. Uncontrolled hypertension Core Measures/Misc (03/21) Acute Coronary Syndrome ACS Diagnosis: No Congestive Heart Failure Congestive Heart Failure Diagnosis No Cerebrovascular Accident CVA/TIA Diagnosis: No VTE (View Protocol) VTE Risk Factors No risk factors No Mechanical VTE Prophylaxis d/t N/A MechProphylax Ordered No VTE Pharm Prophylaxis d/t NA PharmProphylax ordered Sepsis (View protocol) Sepsis Present: No Jhon Brambila MD 08/04/17 1546: Attending MD Review Statement Attending Statement Attending MD Statement: examined this patient, discuss w/resident/PA/SENIOR ELECTRICAL PROJECT MANAGER, agreed w/resident/PA/SENIOR ELECTRICAL PROJECT MANAGER, reviewed EMR data (avail), discussed with nursing, discussed with case mgmt, amended to note Attending Assessment/Plan: Patient is a 67-year-old female with history of recurrent DVT on and cognition with Coumadin as well as hypertension currently on clonidine, metoprolol, amlodipine and losartan. She reports that despite this regimen her blood pressure is poorly controlled. She reports that at home blood pressure frequently runs in the 180 systolic. She reports that time in the past when she was hospitalized for several weeks with poorly controlled blood pressure. She states this was a few years ago. Also significant in her history is complaint of chest pain. She reports that this also has been going on for several years. 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 She was told that she had a blockage that did not require any intervention. She states that her chest pain has persisted. She currently follows up with the cardiology service of Dr. Sprague and reports that she was scheduled to have he stress test yesterday. Per her account there has been no change in the consistency of her pain however the stress test was scheduled because she develops increasing concerns about the symptoms. She was at the Coumadin clinic yesterday when she was noted to have systolic blood pressures in the 200s. She was referred to the emergency room for evaluation. She admits to having chest pain at that time however this is the same pain she has been having for several years according to the patient. Her blood pressure improved after medication administration in the emergency room overnight however decision was made by the ER staff to keep the patient in the hospital for further observation. CT angiogram was done in the emergency room showed no evidence of deep vein thrombosis. She was referred to the hospitalist service for further evaluation. Patient currently complains of chest pain stating that it is 8/10 in intensity at its most severe, pressure-like in nature, nonradiating with no aggravating or relieving factors. She reports ongoing chest pain currently but states that it is not as severe. She is very anxious to determine etiology of her symptoms. She admits to diaphoresis as well. She admits to palpitations. Denies any shortness of breath. Denies any cough. Denies any fever or chills. Denies any reflux symptoms. On examination she is not in any acute distress. Heart sounds are regular. Lungs are clear to auscultation bilaterally. She has no jugular venous distention. Abdomen is soft and nontender. She has no peripheral edema. Problems: 1. Chest pain; chronic going on for several years according to the patient. She was scheduled to have a stress test yesterday however missed the appointment due to her presentation to the ER. 2. Poorly controlled hypertension. 3. DVT thrombosis on anticoagulation with Coumadin. With subtherapeutic INR. Recommendations: -Patient will be observed in the hospital over the next 24 hours. -Due to ongoing chest pain she will obtain a nuclear stress test tomorrow. This has been discussed with the cardiology service. Chest pain appears to be less likely cardiac in etiology given its chronic duration and negative cardiac enzymes and EKG so far. - For her uncontrolled hypertension recommend addition of hydralazine 10 mg 3 times a day in addition to her routine home regimen. We'll monitor for improvement of her blood pressure overnight and likely discharge patient on this regimen. -Her INR remains subtherapeutic. Coumadin dose was adjusted at the community clinic to 50 mg daily. Continue patient on this regimen. I did discuss the option of transitioning to one of the NOACs. She reports that she has had this conversation in the past with her providers. She remains adamant on continuing with Coumadin only. -She will benefit from workup for secondary causes of hypertension. This can easily be done as an outpatient by her primary care provider if not done previously. For now will only recommend obtaining a TSH level.
[2017-08-04 09:57] LABS: PT 17.1 SEC (9.4-12.5)
[2017-08-04 10:28] LABS: ABSOLUTE BASOPHIL COUNT 0 /CUMM (0.0-0.2); ABSOLUTE EOSINOPHIL COUNT 0 /CUMM (0.0-0.7); ABSOLUTE GRANULOCYTE CT 12.1 /CUMM (1.4-6.5); ABSOLUTE LYMPH COUNT 1.1 /CUMM (1.2-3.4); ABSOLUTE MONOCYTE COUNT 0.5 /CUMM (0.10-0.60); BASOPHIL % 0 % (0.0-2.0); EOSINOPHIL % 0 % (0-5); HEMATOCRIT 41.5 % (37-47); MEAN CORPUSCULAR HGB 29.3 PG (27.0-31.0); MEAN CORPUSCULAR HGB CONC 33.4 G/DL (33.0-37.0); MEAN CORPUSCULAR VOLUME 87.7 FL (81.0-99.0); MEAN PLATELET VOLUME 8.9 FL (7.4-10.4); PLATELET COUNT 284 /CUMM (130-400); RBC DISTRIBUTION WIDTH 14.8 % (11.5-14.5); RED BLOOD CELL CT 4.73 /CUMM (4.20-5.40)
[2017-08-04 10:40] LABS: GRANULOCYTE % 88.3 % (42.2-75.2); WHITE BLOOD CELL COUNT 13.7 /CUMM (4.8-10.8)
[2017-08-05 01:03] VITALS: BP 186/88
[2017-08-05 04:14] VITALS: BP 178/86
[2017-08-05 06:38] VITALS: BP 142/88
[2017-08-05 08:25] LABS: PT 24.2 SEC (9.4-12.5)
[2017-08-05] MEDS ORDERED: COUMADIN10 M1 PO (09:54)
[2017-08-05] MEDS ORDERED: HYDRALAZINE HCL10 M1 PO ×2 (09:54→16:05)
--- NOTE | 2017-08-05 11:55 | PN- Housestaff ---
Subjective Follow-up For: Hypertensive urgency(history of poorly controlled blood pressure) Chronic Chest discomfort Tele-Events Since Last Visit: Sinus rhythm overnight heart rate between 50s and 60s no overnight events Subjective: Pain is seen and examined this morning, lying comfortably in the bed. Reported episode of nausea with chest discomfort earlier today, otherwise vitals are stable. Patient denies any shortness of breath palpitations, still reports left-sided chest soreness. Patient has been scheduled for nuclear stress test today we'll follow-up the recommendations. Review of Systems Constitutional: Denies: diaphoresis, fever, malaise. EENTM: Denies: double vision, visual changes, eye pain. Cardiovascular: Reports: chest pain. Denies: orthopena, palpitations. Respiratory: Denies: cough, hemoptysis, orthopnea. Gastrointestinal: Denies: abdominal pain, bloating, constipation. Genitourinary: Denies: discharge, dysuria, frequency. Musculoskeletal: Denies: back pain, gout, joint swelling. Objective Last 24 Hrs of Vital Signs/I&O Vital Signs Date Time Temp Pulse Resp B/P B/P Pulse O2 O2 Flow FiO2 Mean Ox Delivery Rate 08/05 0927 54 156/82 08/05 0927 54 156/82 08/05 0927 98.7 54 156/82 08/05 0927 156/82 08/05 0638 98.7 54 20 142/88 96 Room Air 08/05 0414 50 178/86 08/05 0103 98.2 57 18 186/88 99 Room Air 08/05 0004 64 16 131/66 95 Room Air 08/04 2308 56 170/78 08/04 2053 98.5 56 20 170/78 96 Room Air 08/04 1755 61 178/78 08/04 1754 61 178/78 08/04 1244 99.0 56 15 156/74 96 Room Air Intake & Output 08/05 1600 08/05 0800 08/05 0000 Intake Total 50 480 Output Total Balance 50 480 Intake, Oral 50 480 Patient 163 lb Weight Physical Exam General Appearance: Alert, Oriented X3 Skin: No Rashes, No Breakdown Skin Temp/Moisture Exam: Warm/Dry Sepsis Skin Exam (color): Normal for Ethnicity, Cyanotic Cardiovascular: Regular Rate, Normal S1, Normal S2 Lungs: Clear to Auscultation, Normal Air Movement Assessment/Plan Assessment: Mrs. Bush is a 67-year-old woman with history of recurrent DVT on Coumadin, uncontrolled hypertension while on 4 medications, with episodes of chest heaviness in the past multiple times with negative subsequent workups. Of concern is patient's uncontrolled hypertension, in the setting of patient stated compliance to medication and diet. Patient to be admitted to telemetry floor for management of hypertensive urgency and chest pain. 1. Hypertensive urgency(with No evidence of end organ damage) * Continue to monitor patient on telemetry floor * Blood pressure has been stable after starting hydralazine 10 mg 3 times a day.. * Continue with other medications including losartan and Norvasc and beta india. * Goal blood pressure less than 160/100. Avoid overaggressive drops in blood pressure. 2. Chest pain syndrome: * PE ruled out, ACS ruled out with 2 negative sets of troponin and no ST-T changes. * getting stress test while inpatient. But patient continues to report left- sided chest soreness, she has been scheduled for nuclear stress test today . * If the results come back negative patient will be discharged today 3. History of DVT: * INR today is 2.32 . * Will give 15 mg of Coumadin today recheck INR tomorrow. Full code. Heart healthy diet. DVT prophylaxis addressed by use of Coumadin. Problem List: 1. Uncontrolled hypertension 2. Chest pain Pain Ratin Pain Location: CHEST PAIN Pain Goal: Pain 4 or less Pain Plan: TYLENOL Tomorrow's Labs & Rationales: INR
--- NOTE | 2017-08-05 12:47 | PN- Att Addend ---
Attending Addendum Attending Brief Note Patient seen and examined. Resting comfortably and not in any acute distress. No events on telemetry monitoring overnight. She continues to complain of left- sided chest pain. States that her pain never abates. Today it appears that the pain is reducible though she denied this previously. She complained of some nausea overnight but denied any vomiting. Denied any abdominal discomfort. Denied any changes in her bowel habits. On examination abdomen is nondistended soft and nontender with normal bowel sounds. Blood pressure has improved with addition of hydralazine to her regimen yesterday. She is scheduled to undergo a nuclear stress test which we anticipate will be negative after chest pain is very atypical. If this is the case she will be discharged home with recommendations to follow-up with her primary care provider and cardiology service as an outpatient. She admits that her chest pain has been going on for a few years. It has led to cardiac catheterization in the past according to the patient. It may be musculoskeletal in etiology. He does not appear to be limiting the patient from her daily activities. It does not appear to be of gastrointestinal etiology. Order severe condition such as pulmonary embolism has been ruled out. Recommend ongoing follow-up with her primary care provider as an outpatient.
[2017-08-05 14:10] VITALS: BP 140/70
--- NOTE | 2017-08-05 14:34 | Patient Discharge Instructions ---
Discharge Instructions General Discharge Information You were seen/treated for: Hypertensive urgency(history of poorly controlled blood pressure) Chronic Chest discomfort Special Instructions: 1. Please follow-up with your primary care physician within 1-2 weeks after discharge. 2. Please follow-up with your viscose department worker Dr. Sprague within 1-2 weeks after discharge. 3. Please take 15 mg of Coumadin on Wednesday, take 10 mg of Coumadin on Wednesday and Wednesday, please get INR checked on Wednesday08/09/17 Acute Coronary Syndrome Inclusion Criteria At DC or during hospital stay patient has or had the following: ACS DIAGNOSIS No Discharge Core Measures Meds if any: Prescribed or Continued at Discharge Meds if any: NOT Prescribed or Continued at Discharge Congestive Heart Failure Inclusion Criteria At DC or during hospital stay patient has or had the following: CHF DIAGNOSIS No Discharge Core Measures Meds if any: Prescribed or Continued at Discharge Meds if any: NOT Prescribed or Continued at Discharge Cerebrovascular accident Inclusion Criteria At DC or during hospital stay patient has or had the following: CVA/TIA Diagnosis No Discharge Core Measures Meds if any: Prescribed or Continued at Discharge Meds if any: NOT Prescribed or Continued at Discharge Venous thromboembolism Inclusion Criteria VTE Diagnosis No VTE Type NONE VTE Confirmed by (Test) NONE Discharge Core Measures - Per Current guidelines, there needs to be overlap - treatment for the first 5 days of Warfarin therapy. - If discharged on Warfarin prior to 5 days of - overlap therapy, the patient will need to be - assessed for post discharge needs including - *Post discharge parental anticoagulation - *Warfarin and/or parental anticoagulation education - *Follow up date to check INR post discharge At least 5 days overlap therapy as Inpatient No Meds if any: Prescribed or Continued at Discharge Note: Overlap Therapy is Warfarin and Anticoagulant Meds if any: NOT Prescribed or Continued at Discharge
--- NOTE | 2017-08-05 16:59 | NUCLEAR MEDICINE REPORT ---
PERSANTINE STRESS AND RESTING SPECT MYOCARDIAL PERFUSION IMAGING STUDY WITH GATED SPECT IMAGES: CLINICAL INDICATION: Hypertension, recurrent DVT. PROCEDURE: Regional myocardial perfusion was assessed using a 1 day protocol. Stress images were obtained on 08/05/2017 following the intravenous administration of 19.6 mCi Tc 99m Myoview. Stress consisted of 40 mg Persantine given intravenously. Following the sestamibi injection, 125 mg aminophylline was given intravenously. Rest images were obtained 08/05/2017 following the intravenous administration of 31.7 mCi Technetium 99m Myoview. Single photon emission tomographic (SPECT) images were obtained. SPECT images were acquired in a 64 x 64 matrix of 64 projections over 180 degrees. These were reconstructed into standard short axis, horizontal and vertical long axis cardiac projections. FINDINGS: The post stress images demonstrate the left ventricular chamber to be normal in size. There is homogeneous distribution of activity in the left ventricular myocardium with no regions of abnormally decreased activity noted. The resting images also demonstrate homogeneous distribution of activity in the left ventricular myocardium, and are not significantly changed from the post stress images. The images were obtained using a gated SPECT technique, which permits visualization of wall motion and calculation of the left ventricular ejection fraction. No left ventricular wall motion abnormalities are noted on either the stress or resting study. The calculated left ventricular ejection fraction is 67% on the stress study. Compared to the previous study dated 11/19/2010, there has not been a significant change in perfusion. The gated images from the previous study are not available for review and the wall motion cannot be compared. Ejection fraction is not significantly changed from the previous study when it was 62%. IMPRESSION: Normal Persantine stress and resting myocardial perfusion study with normal left ventricular wall motion and ejection fraction.
[2017-08-05 17:11] VITALS: BP 140/80
--- NOTE | 2017-08-09 12:48 | IV DIPYRIDAMOLE NUCLEAR STRESS ---
Clinical Diagnosis: Chest Pain, R/O Ischemia Fiberglass Product Tester: Sammy Hill IV DIPYRIDAMOLE INFUSED: 40 mg IV AMINOPHYLLINE INFUSED: 125 mg PATIENT WEIGHT: 163 lbs INTERPRETATION: The patient's baseline EKG showed normal sinus rhythm at 50 BPM. Baseline B/P 132/70. The patient received 40 mg of dipyridamole infused intravenously over a 4 minute period. TC99M Myoview was injected after dipyridamole infusion. The patient tolerated the infusion well. The patient complained of mild headache. There were no EKG changes seen following pharmacologic infusion. Arrhythmias: None IMPRESSION: The test was supervised by the interpreting Speech Lang Path Therapist, who was in attendance during the entire test. No EKG evidence of stress induced myocardial ischemia. See separately dictated Nuclear Report.
== END 2017-08-05 20:15 ==
LOC: ERH 10:45 → ERHI 08-04 00:02 → 1NO 08-04 00:02 → EDBEDREQ 08-04 14:01 → ERHI 08-04 14:10 → ENRESERV 08-04 23:03 → 1NO 08-05 00:45
PROVIDERS: Dermatology; Internal Medicine Hematology & Oncology; Student in an Organized Health Care Education/Training Program
DX: I11.0 Hypertensive heart disease with heart failure (principal); Z86.718 Personal history of other venous thrombosis and embolism; Z79.01 Long term (current) use of anticoagulants; Z79.82 Long term (current) use of aspirin; E78.5 Hyperlipidemia, unspecified; R07.89 Other chest pain
CPT/HCPCS: 6020; 36415; 71045; 78452; 82436; 87804; 87804-59; 93005; 93010; 93016; 93017; 96374; 96375; 99291; A9502; G0378; J0360; J1200; J1245; J1885; J2405; J2930; J3490; J7508

== ENCOUNTER 2017-10-13 14:14 | Emergency (ER) | payer OTHER, MEDICARE ==
[~2017-10-13] VITALS: Ht 170.2 cm; Wt 76.7 kg
[~2017-10-13 14:14] MED LIST changes: +COUMADIN10 M1 PO; +HYDRALAZINE HCL10 M1 PO; +NEXIUM40 M1 PO; +VENTOLIN HFA18 GM INH
--- NOTE | 2017-10-13 16:02 | ED GENERAL ADULT ---
History of Present Illness General Chief Complaint: General Adult Stated Complaint: ELAVATED BP Source: patient Exam Limitations: no limitations Vital Signs & Intake/Output Vital Signs & Intake/Output Vital Signs Date Time Temp Pulse Resp B/P B/P Pulse O2 O2 Flow FiO2 Mean Ox Delivery Rate 10/13 1702 98.1 61 18 121/69 04 1558 98.1 61 18 121/69 Room Air 10/13 1422 99.3 74 20 178/83 98 Room Air Allergies Coded Allergies: iodine (UNKNOWN 09/30/15) shellfish derived (UNKNOWN 09/30/15) Reconcile Medications Albuterol Sulfate (Ventolin Hfa) 90 MCG HFA.AER.AD 2 PUF INH DAILY NEEDED SOB (Reported) Amlodipine Besylate (Amlodipine) 10 MG TABLET 1 TAB PO DAILY BP (Reported) Aspirin (Ecotrin) 81 MG TABLET.DR 1 TAB PO DAILY HEART/BLOOD (Reported) Clonidine Hydrochloride (Clonidine HCl) 0.3 MG TAB 1 TAB PO DAILY BP ( Reported) Esomeprazole (Nexium) 40 MG CAPSULE.DR 1 TAB PO DAILY GERD (Reported) Fluticasone Propionate (Flovent) 0.11 MG/Actuation CHRISSY 2 PUFF INH PRN DYSPNEA (Reported) Hydralazine HCl 10 MG TABLET 1 TAB PO TID HTN Losartan Potassium 100 MG TABLET 1 TAB PO DAILY BP (Reported) Metoprolol Succinate 100 MG TAB.ER.24H 1 TAB PO DAILY HEART (Reported) Warfarin Sodium (Coumadin) 1 MG TABLET 1 TAB PO DAILY blood thinner ( Reported) take 15 mg coumadin on WEDNESDAY, WEDNESDAY AND WEDNESDAY AND 10 MG COUMADIN ON REST OF THE DAYS . Triage Note: PT TO ED FROM PMD OFFICE FOR HTN. PT STATES BP WAS 207/90. BP IN TRIAGE 178/83. PT SLIGHT H/A BUT NOT BAD. PT DENIES CP/SOB Triage Nurses Notes Reviewed? yes Onset: Abrupt Duration: day(s): Timing: recent history HPI: 10/13/17 9 PM 67-year-old female presents to the emergency department complaining of status post hypertension. The patient states she was at her primary care doctor's office and found to have a significantly elevated blood pressure she says her systolic blood pressure was greater than 200 and she was referred to the ED for evaluation. In the emergency department her pressure had come down. She denied any chest pain or shortness of breath. She insisted upon leaving, but agreed to stay for EKG and labs. She was given 0.1 mg of clonidine. Past History Travel History Traveled to [place] past 21 day No Medical History Any Pertinent Medical History? see below for history Neurological: NONE EENT: NONE Cardiovascular: CHF, hypertension, hyperlipidemia, "HEART PROBLEMS" Respiratory: NONE Gastrointestinal: NONE Hepatic: NONE Renal: NONE Musculoskeletal: fracture Psychiatric: NONE Endocrine: NONE Blood Disorders: DVT History of MRSA: No History of VRE: No History of CDIFF: No Influenza Vaccine: 07/02/17 Surgical History Surgical History: non-contributory Psychosocial History Who do you live with Daughter Services at Home None What is your primary language [place]ib[place]ian Tobacco Use: Current Daily Use Daily Tobacco Use Amount/Type: => 5 Cigarettes daily ETOH Use: occasional use Illicit Drug Use: denies illicit drug use Family History Family History, If Any: MOTHER Heart disease Hx Contributory? No Review of Systems Review of Systems Constitutional: Denies: fever. EENTM: Denies: visual changes. Respiratory: Denies: short of breath. Cardiovascular: Denies: chest pain. GI: Denies: abdominal pain. Genitourinary: Reports: no symptoms. Musculoskeletal: Reports: no symptoms. Skin: Denies: rash. Neurological/Psychological: Denies: headache. Hematologic/Endocrine: Reports: no symptoms. Immunologic/Allergic: Reports: no symptoms. Physical Exam Physical Exam General Appearance: well developed/nourished, alert, awake, anxious, mild distress Head: atraumatic, normal appearance Eyes: Bilateral: normal appearance, PERRL, EOMI. Ears, Nose, Throat: normal pharynx, normal ENT inspection Neck: normal inspection, supple Respiratory: normal breath sounds, chest non-tender, no respiratory distress Cardiovascular: regular rate/rhythm Peripheral Pulses: 4+ radial (R), 4+ radial (L) Gastrointestinal: soft, non-tender Back: normal range of motion Extremities: pedal edema Neurologic/Psych: no motor/sensory deficits, awake, alert, oriented x 3, normal gait Skin: intact, normal color, warm/dry Core Measures ACS in differential dx? No CVA/TIA Diagnosis: No Sepsis Present: No Sepsis Focused Exam Completed? No Progress Differential Diagnoses I considered the following diagnoses in my evaluation of the patient: Plan of Care: Orders Procedure Date/time Status TROPONIN LEVEL 10/13 1603 Complete COMPREHENSIVE METABOLIC PANEL 10/13 1603 Complete CBC WITHOUT DIFFERENTIAL 10/13 1603 Complete EKG 10/13 1603 Active Laboratory Tests 10/13/17 1631: Anion Gap 9, Estimated GFR > 60, BUN/Creatinine Ratio 15.0, Glucose 85, Calcium 9.7, Total Bilirubin 0.4, AST 20, ALT 18, Alkaline Phosphatase 53, Troponin I < 0.01, Total Protein 7.0, Albumin 3.9, Globulin 3.1, Albumin/Globulin Ratio 1.3, CBC w Diff NO MAN DIFF REQ, RBC 4.33, MCV 88.5, MCH 29.4, MCHC 33.2, RDW 14.9 H , MPV 8.4, Gran % 56.2, Lymphocytes % 34.6, Monocytes % 7.2, Eosinophils % 1.6, Basophils % 0.4, Absolute Granulocytes 5.1, Absolute Lymphocytes 3.1, Absolute Monocytes 0.6, Absolute Eosinophils 0.1, Absolute Basophils 0 Initial ED EKG: NSR Prior EKG: unchanged Departure Departure Disposition: LEFT AGAINST MEDICAL ADVICE Condition: Stable Clinical Impression Primary Impression: Hypertension Referrals: Santy Dickey APRN (PCP/Family) Departure Forms: Customer Survey General Discharge Information Comments The patient's EKG revealed normal sinus rhythm without ischemic changes. She remained asymptomatic and her blood pressure came down. She was unable to stay for the lab results. I told her I would call if there was any significant abnormalities. She signed out AMA. She was instructed to follow-up with her primary care doctor this week, have her blood pressure repeated in the next 48- 72 hours, to return if any chest pain or shortness of breath. Critical Care Note Critical Care Note Critical Care Time: non-applicable
[2017-10-13 16:46] LABS: ABSOLUTE BASOPHIL COUNT 0 /CUMM (0.0-0.2); ABSOLUTE EOSINOPHIL COUNT 0.1 /CUMM (0.0-0.7); ABSOLUTE GRANULOCYTE CT 5.1 /CUMM (1.4-6.5); ABSOLUTE LYMPH COUNT 3.1 /CUMM (1.2-3.4); ABSOLUTE MONOCYTE COUNT 0.6 /CUMM (0.10-0.60); BASOPHIL % 0.4 % (0.0-2.0); EOSINOPHIL % 1.6 % (0-5); GRANULOCYTE % 56.2 % (42.2-75.2); HEMATOCRIT 38.3 % (37-47); MEAN CORPUSCULAR HGB 29.4 PG (27.0-31.0); MEAN CORPUSCULAR HGB CONC 33.2 G/DL (33.0-37.0); MEAN CORPUSCULAR VOLUME 88.5 FL (81.0-99.0); MEAN PLATELET VOLUME 8.4 FL (7.4-10.4); PLATELET COUNT 277 /CUMM (130-400); RBC DISTRIBUTION WIDTH 14.9 % (11.5-14.5); RED BLOOD CELL CT 4.33 /CUMM (4.20-5.40); WHITE BLOOD CELL COUNT 9.1 /CUMM (4.8-10.8)
[2017-10-13 17:02] VITALS: BP 121/69
== END 2017-10-13 17:22 | disposition left against medical advice (07) ==
LOC: ERH 14:14
PROVIDERS: Emergency Medicine
DX: I10 Essential (primary) hypertension (principal)
CPT/HCPCS: 93005; 93010